=== PATIENT | female | born 1970 | race Hispanic/Latino ===

== ENCOUNTER 2017-02-07 13:58 | Outpatient (CLI) | payer BC ==
--- NOTE | 2017-02-07 15:39 | Mammography Report ---
BILATERAL DIGITAL DIAGNOSTIC MAMMOGRAM WITH CAD : 02/07/17 13:58:00 CLINICAL: History of right breast cancer diagnosed in 2016 and status post right mastectomy with ODESSA flap reconstruction. She complains of pain at the inner aspect of the reconstructed right breast. COMPARISON:01/22/16 FINDINGS: The left breast is heterogeneously dense, which may obscure small masses. However, the fibroglandular pattern is stable. No mass, architectural distortion or suspicious calcifications. Normal appearance of the right ODESSA flap reconstruction. A single dystrophic Central calcification is identified on the CC view. IMPRESSION: No mammographic evidence of malignancy. No explanation for pain in the reconstructed right breast. BI-RADS CATEGORY: 2 -- Benign RECOMMENDATION: Routine mammographic screening in one year. COMMENT: Patient follow-up letters are generated via our [employer] application.
== END 2017-02-07 13:59 | disposition home or self-care (01) ==
LOC: SPVWC 13:58
PROVIDERS: ATTEND Surgery
DX: N64.4 Mastodynia (principal); Z85.3 Personal history of malignant neoplasm of breast; Z90.11 Acquired absence of right breast and nipple
CPT/HCPCS: 77066; G0204

== ENCOUNTER 2018-03-13 14:24 | Outpatient (CLI) | payer BC ==
--- NOTE | 2018-03-13 15:07 | Mammography Report ---
BILATERAL DIGITAL SCREENING MAMMOGRAM WITH CAD: 03/13/18 00:00:00 CLINICAL: Routine screening.Breast cancer survivor status post right mastectomy and ODESSA flap reconstruction . COMPARISON:02/07/17 FINDINGS: The left breast is heterogeneously dense with a stable fibroglandular pattern. No mass, architectural distortion or suspicious calcifications. Normal appearance of the right flap reconstruction. IMPRESSION: No mammographic evidence of malignancy. BI-RADS CATEGORY: 2 -- Benign RECOMMENDATION: Routine mammographic screening in one year. COMMENT: Patient follow-up letters are generated by our [employer] application.
== END 2018-03-13 14:25 | disposition home or self-care (01) ==
LOC: SPVWC 14:24
PROVIDERS: ATTEND Surgery
DX: Z12.31 Encounter for screening mammogram for malignant neoplasm of breast (principal); Z90.11 Acquired absence of right breast and nipple
CPT/HCPCS: 77067

== ENCOUNTER 2019-01-31 13:26 | Outpatient (CLI) | payer BC ==
--- NOTE | 2019-01-31 14:08 | Mammography Report ---
RIGHT DIGITAL DIAGNOSTIC MAMMOGRAM with CAD: 01/31/19 13:26:00 CLINICAL: History of right breast cancer diagnosed in 2016 and status post right mastectomy with ODESSA flap reconstruction. Pain in the reconstructed right breast which has become exacerbated after a recent tonsillectomy. COMPARISON:03/13/18 FINDINGS: Normal appearance of the flap reconstruction of the right breast.No mass, architectural distortion or suspicious calcifications. IMPRESSION: No mammographic evidence of malignancy.No explanation for pain. BI-RADS CATEGORY: 2 - - Benign RECOMMENDATION: Routine mammographic screening. ACR BI-RADS MAMMOGRAPHIC CODES: 0 = Needs additional imaging evaluation; 1 = Negative; 2 = Benign; 3 = Probably benign; 4 = Suspicious; 5 = Malignant; 6 = Known biopsy-proven malignancy COMMENT: 1. Dense breast tissue, i.e., adenosis, fibrocystic changes, etc., may obscure an underlying neoplasm. 2. Approximately 10% of cancers are not detected with mammography. 3. A negative mammography report should not delay biopsy if a clinically suspicious mass is present. COMMENT: Patient follow-up letters are generated by our [email or web address] application.
== END 2019-01-31 13:27 | disposition home or self-care (01) ==
LOC: SPVWC 13:26
PROVIDERS: ATTEND Internal Medicine Hematology & Oncology
DX: C50.411 Malignant neoplasm of upper-outer quadrant of right female breast (principal); I10 Essential (primary) hypertension

== ENCOUNTER 2019-06-04 10:39 | Outpatient (CLI) | payer BC ==
--- NOTE | 2019-06-04 12:00 | Mammography Report ---
BILATERAL DIGITAL SCREENING MAMMOGRAM WITH CAD INDICATION: Routine screening mammography. Breast cancer survivor status post right mastectomy with D IEP flap reconstruction. TECHNIQUE: Digital bilateral 2D mammography was obtained in the craniocaudal and mediolateral obliq ue projections. This examination was interpreted with the benefit of Computer-Aided Detection analysi s. COMPARISON: 03/13/2018 bilateral mammogram and 01/31/2019 right mammogram. FINDINGS: Breast Density: The left breast is heterogeneously dense, which may obscure small masses. The reconst ructed right breast is mostly fatty. No mass, architectural distortion or suspicious calcifications. IMPRESSION:No mammographic evidence of malignancy. BI-RADS Category 2: Benign. No mammographic evidence of malignancy. Recommend routine screening ma mmography in one year. A "normal" or negative report should not discourage follow up or biopsy of a clinically significant f inding. A written summary of these findings will be mailed to the patient. The patient will be entered into a mammography reporting system which will generate a reminder letter for the patient's next appointmen t at the appropriate interval. The [employer] recommends yearly mammograms starting at age 40 and continuing as l aureliano as a woman is in good health. Breast MRI is recommended for women with an approximate 20-25% or greater lifetime risk of breast cancer, including women with a strong family history of breast or ova lucie cancer or who have been treated for Hodgkin's disease. Signer Name: Ismael Galvan MD Signed: 06/04/2019 11:56 AM Workstation Name: [id number]
== END 2019-06-04 10:40 | disposition home or self-care (01) ==
LOC: SPVWC 10:39
PROVIDERS: ATTEND Internal Medicine Hematology & Oncology
DX: Z12.31 Encounter for screening mammogram for malignant neoplasm of breast (principal); I10 Essential (primary) hypertension
CPT/HCPCS: 77067

== ENCOUNTER 2020-08-13 16:55 | Outpatient (CLI) | payer BC ==
--- NOTE | 2020-08-14 14:12 | Mammography Report ---
DIGITAL SCREENING MAMMOGRAM WITH CAD, 08/13/2020 INDICATION: Routine screening mammography. TECHNIQUE: Digital bilateral 2D mammography was obtained in the craniocaudal and mediolateral obliq ue projections. This examination was interpreted with the benefit of Computer-Aided Detection analysi s. COMPARISON: Prior mammograms 06/04/2019 and 03/13/2018 FINDINGS: Breast Density: There are scattered areas of fibroglandular density. There is no evidence of dominant mass, suspicious calcifications or architectural distortion in eithe r breast. There is stable postsurgical change related to right mastectomy with reconstruction. There has been no significant change compared with the prior examinations. IMPRESSION: Follow up recommendation: Routine yearly BI-RADS Category 2: Benign. A "normal" or negative report should not discourage follow up or biopsy of a clinically significant f inding. A written summary of these findings will be mailed to the patient. The patient will be entered into a mammography reporting system which will generate a reminder letter for the patient's next appointmen t at the appropriate interval. The [employer] recommends yearly mammograms starting at age 40 and continuing as l aureliano as a woman is in good health. Breast MRI is recommended for women with an approximate 20-25% or greater lifetime risk of breast cancer, including women with a strong family history of breast or ova lucie cancer or who have been treated for Hodgkin's disease. Signer Name: Janee Abad MD Signed: 08/14/2020 2:08 PM Workstation Name: [id number]
== END 2020-08-13 16:56 | disposition home or self-care (01) ==
LOC: SPVWC 16:55
PROVIDERS: ATTEND Internal Medicine Hematology & Oncology
DX: Z12.31 Encounter for screening mammogram for malignant neoplasm of breast (principal)
CPT/HCPCS: 77067

== ENCOUNTER 2021-08-19 16:48 | Outpatient (CLI) | payer BC ==
--- NOTE | 2021-08-20 09:18 | Mammography Report ---
DIGITAL SCREENING MAMMOGRAM WITH CAD, 08/19/2021 CLINICAL INFORMATION / INDICATION: Routine screening mammography. SCREENING MAMMO WITH RIGHT reconstr uction TECHNIQUE: Digital bilateral 2D mammography was obtained in the craniocaudal and mediolateral obliqu e projections. This examination was interpreted with the benefit of Computer-Aided Detection analysis . COMPARISON: 08/13/2020 FINDINGS: Breast Density: There are scattered areas of fibroglandular density. No dominant mass, suspicious calcifications, or architectural distortion in either breast. Previous right mastectomy with breast reconstruction. IMPRESSION: No mammographic evidence of malignancy. Follow up recommendation: Routine yearly BI-RADS Category 2: Benign. A "normal" or negative report should not discourage follow up or biopsy of a clinically significant f inding. A written summary of these findings will be mailed to the patient. The patient will be entered into a mammography reporting system which will generate a reminder letter for the patient's next appointmen t at the appropriate interval. The [employer] recommends yearly mammograms starting at age 40 and continuing as l aureliano as a woman is in good health. Breast MRI is recommended for women with an approximate 20-25% or greater lifetime risk of breast cancer, including women with a strong family history of breast or ova lucie cancer or who have been treated for Hodgkin's disease. Signer Name: Victoriano Womack MD Signed: 08/20/2021 9:14 AM Workstation Name: [id number]
== END 2021-08-19 16:49 | disposition home or self-care (01) ==
LOC: SPVWC 16:48
PROVIDERS: ATTEND Internal Medicine Hematology & Oncology
DX: Z12.31 Encounter for screening mammogram for malignant neoplasm of breast (principal)
CPT/HCPCS: 77067

== ENCOUNTER 2021-09-16 13:37 | Outpatient (CLI) | payer BC ==
--- NOTE | 2021-09-16 17:07 | Ultrasound Report ---
LEFT DIGITAL DIAGNOSTIC MAMMOGRAM WITH CAD CONVENTIONAL, 09/16/2021 LEFT LIMITED BREAST ULTRASOUND CLINICAL INFORMATION / INDICATION: Patient presents for evaluation of one episode of left nipple disc harge. Patient has a history of right breast cancer status post right mastectomy in 2016. TECHNIQUE: Digital left mammographic imaging was performed. Magnification views were obtained. Limite d ultrasound was performed. This examination was interpreted with the benefit of Computer-Aided Detec tion (CAD) analysis. COMPARISON: Prior mammograms 08/19/2021 and 08/13/2020 FINDINGS: Breast Density: There are scattered areas of fibroglandular density. MAMMOGRAPHIC FINDINGS: No mammographic abnormality is seen in the subareolar left breast to account f or left nipple discharge. ULTRASOUND FINDINGS: Targeted ultrasound evaluation was performed of the area of interest. Targeted ultrasound of the subareolar left breast reveals dense fibroglandular tissue and mild benign duct ec mike. No intraductal mass or suspicious sonographic abnormality identified. IMPRESSION: 1. There is mild benign duct ectasia in the subareolar left breast. There is no mammographic or sonog raphic abnormality identified to account for left nipple discharge, therefore clinical correlation is recommended. Follow up recommendation: Back to schedule. BI-RADS Category 2: Benign. A "normal" or negative report should not discourage follow up or biopsy of a clinically significant f inding. A written summary of these findings will be mailed to the patient. The patient will be entered into a mammography reporting system which will generate a reminder letter for the patient's next appointmen t at the appropriate interval. According to the [employer], yearly mammograms are recommended starting at age 40 and continuing as long as a woman is in good health. Breast MRI is recommended for women with an ayad roximately 20-25% or greater lifetime risk of breast cancer, including women with a strong family his tory of breast or ovarian cancer and women who have been treated for Hodgkin's disease. Signer Name: Janee Abad MD Signed: 09/16/2021 5:02 PM Workstation Name: [id number]
== END 2021-09-16 13:38 | disposition home or self-care (01) ==
LOC: SPVWC 13:37
PROVIDERS: ATTEND Internal Medicine Hematology & Oncology
DX: C50.411 Malignant neoplasm of upper-outer quadrant of right female breast (principal); N60.42 Mammary duct ectasia of left breast